=== PATIENT | female | born 1945 | race Caucasian/White ===

== ENCOUNTER 2019-04-13 13:33 | Emergency (ER) ==
[2019-04-13 13:33] VITALS: BMI 29.0
[2019-04-13] MEDS ORDERED: DECADRON 4 MG/ML SDV IM STA (13:37)
[2019-04-13] MEDS ORDERED: PEPCID PO STA (13:38)
[2019-04-13] MEDS ORDERED: NORCO 10-325 PO STA (13:38)
[2019-04-13] MEDS ORDERED: SODIUM CHLORIDE 1,000 ML IV STA (13:38)
[2019-04-13 13:40] VITALS: BP 103/91; TEMP 95
[2019-04-13] MEDS ORDERED: DECADRON 4 MG/ML SDV IVP STA (13:48)
--- NOTE | 2019-04-13 16:44 | ED.PDOC ---
General ED Provider: Dr. TABITHA HAMMER Chief Complaint: Allergic Reaction Stated Complaint: bee sting Time Seen by Physician: 13:33 Mode of Arrival: Wheelchair Information Source: Family Exam Limitations: No limitations Primary Care Provider: AURA CATHERINE Nursing and Triage Documentation Reviewed and Agree: Yes Does patient meet sepsis criteria?: No System Inflammatory Response Syndrome: Not Applicable Sepsis Protocol: For patient's 13 years and over: Temp is 96.8 and below OR 101 and greater Pulse >90 BPM Resp >20/minute Acutely Altered Mental Status Are patient's symptoms suggestive of a new infection, such as: -Pneumonia -Skin, Soft Tissue -Endocarditis -UTI -Bone, Joint Infection -Implantable Device -Acute Abdominal Infection -Wound Infection -Meningitis -Blood Stream Catheter Infection -Unknown Trauma/Injury Complaint Exam - Bite Injury Complaint/Exam Location of Bite: face Bite Occured: home face Symptoms Are: Still present Type of Bite: Reports: Insect Animal Immunized: Reports: N/A Initial Severity: Mild Current Severity: Mild Character: Reports: Puncture Aggravating: Reports: None Alleviating: Reports: None Associated Signs and Symptoms: Denies: Fever, Erythema, Drainage, Swelling, Lymphadenopathy, Numbness, Tingling, Limited ROM Related History: Reports: Unprovoked Bite Findings: Present: Erythema Review of Systems - Review Of Systems Constitutional: Reports: No symptoms Eyes: Reports: No symptoms Ears, Nose, Mouth, Throat: Reports: No symptoms Respiratory: Reports: No symptoms Cardiac: Reports: No symptoms GI: Reports: No symptoms : Reports: No symptoms Musculoskeletal: Reports: No symptoms Skin: Reports: No symptoms Neurological: Reports: No symptoms Endocrine: Reports: No symptoms Hematologic/Lymphatic: Reports: No symptoms All Other Systems: Reviewed and Negative Past Medical History - Past Medical History Previously Healthy: Yes Endocrine: Reports: None Cardiovascular: Reports: None Respiratory: Reports: None Hematological: Reports: None Gastrointestinal: Reports: None Genitourinary: Reports: None Neuro/Psych: Reports: None Musculoskeletal: Reports: None Cancer: Reports: None Last Menstrual Period: menopause - Surgical History General Surgical History: Reports: None - Family History Family History: Reports: None - Social History Smoking Status: Never smoker Hx Substance Use: No Alcohol Screening: Occasionally Physical Exam - Physical Exam Appearance: Well-appearing, No pain distress, Well-nourished Eyes: BALTAZAR, EOMI, Conjunctiva clear ENT: Ears normal, Nose normal, Oropharynx normal Respiratory: Airway patent, Breath sounds clear, Breath sounds equal, Respirations nonlabored Cardiovascular: RRR, Pulses normal, No rub, No murmur GI/: Soft, Nontender, No masses, Bowel sounds normal, No Organomegaly Musculoskeletal: Normal strength, ROM intact, No edema, No calf tenderness Skin: Warm Neurological: Sensation intact, Motor intact, Reflexes intact Psychiatric: Affect appropriate, Mood appropriate Critical Care Note - Critical Care Note Total Time (mins): 0 Course - Course Hematology/Chemistry: 04/13/19 13:45 04/13/19 13:45 Orders, Labs, Meds: Lab Review 04/13/19 04/13/19 04/13/19 13:45 13:45 13:45 WBC 6.36 RBC 4.75 Hgb 14.8 Hct 41.7 MCV 87.8 MCH 31.2 H MCHC 35.5 H RDW Coeff of Mai 12.1 Plt Count 505 H Immature Gran % (Auto) 0.3 Neut % (Auto) 52.0 Lymph % (Auto) 42.0 Bates % (Auto) 4.1 Eos % (Auto) 1.1 Baso % (Auto) 0.5 Immature Gran # (Auto) 0.0 Neut # (Auto) 3.3 Lymph # (Auto) 2.7 Bates # (Auto) 0.3 L Eos # (Auto) 0.1 Baso # (Auto) 0.0 Sodium 138.0 Potassium 3.80 Chloride 106.0 Carbon Dioxide 22.0 Anion Gap 13.80 BUN 14.0 Creatinine 1.00 Estimated GFR (MDRD) 55.00 BUN/Creatinine Ratio 14.00 Glucose 107.0 H Calcium 8.70 Total Bilirubin 0.90 AST 23.0 ALT 21.0 Alkaline Phosphatase 65.0 Total Creatine Kinase 84.0 POC Venous Troponin I 0.00 Troponin I < 0.012 Total Protein 7.10 Albumin 3.90 Globulin 3.20 Albumin/Globulin Ratio 1.21 Orders Category Date Time Status EKG-(ED ONLY) Stat CARDIO 04/13/19 13:39 Completed CBC W/ AUTO DIFF Stat LAB 04/13/19 13:45 Completed COMPREHENSIVE METABOLIC PANEL Stat LAB 04/13/19 13:45 Completed CREATINE KINASE Stat LAB 04/13/19 13:45 Completed TROPONIN I Stat LAB 04/13/19 13:45 Completed Dexamethasone 4 mg/ml Inj [Decadron 4 mg/ml Sdv] MEDS 04/13/19 13:48 Discontinued 4 mg IVP ONCE STA Famotidine [Pepcid] MEDS 04/13/19 13:38 Discontinued 20 mg PO ONCE STA Hydrocodone Bit/Acetaminophen [[place] 10-325] MEDS 04/13/19 13:38 Discontinued 1 tab PO ONCE STA Sodium Chloride 0.9% [Sodium Chloride] 1,000 ml MEDS 04/13/19 13:38 Discontinued IV BOLUS Medications Discontinued Medications Generic Name Dose Route Start Last Admin Trade Name Arslan PRKayley Reason Stop Dose Admin Hydrocodone Bitart/Acetaminophen 1 tab 04/13/19 13:38 [place] 10-325 PO 04/13/19 13:39 ONCE STA Dexamethasone Sodium Phosphate 4 mg 04/13/19 13:48 04/13/19 13:56 Decadron 4 Mg/Ml Sdv IVP 04/13/19 13:49 4 mg ONCE STA Administration Famotidine 20 mg 04/13/19 13:38 04/13/19 13:54 Pepcid PO 04/13/19 13:39 20 mg ONCE STA Administration Sodium Chloride 1,000 mls @ 1,000 mls/hr 04/13/19 13:38 04/13/19 13:56 Sodium Chloride IV 04/13/19 14:37 100 mls/hr BOLUS STA Administration Vital Signs: Temp Pulse Resp BP Pulse Ox 04/13/19 13:33 95 F L 82 16 103/91 H 94 L Departure - Departure Time of Disposition: 16:43 Disposition: HOME SELF-CARE Discharge Problem: Allergic state Bee sting Qualifiers: Encounter type: initial encounter Instructions: Insect Bite or Sting (ED) Condition: Good Pt referred to PMD for follow-up: Yes IPMP verified?: No Additional Instructions: Please call your Family Physician as soon as possible to schedule a follow-up appointment. Allergies/Adverse Reactions: Allergies No Known Allergies Allergy (Verified 04/13/19 13:42) Home Medications: Ambulatory Orders Diclofenac Sodium [Voltaren-Xr] 100 mg PO DAILY 04/13/19
== END 2019-04-13 16:53 | disposition home or self-care (01) ==
LOC: ED 13:33
DX: T63.441A Toxic effect of venom of bees, accidental (unintentional), initial encounter (principal)
CPT/HCPCS: 36415; 80053; 82550; 84484; 85025; 93005; 93010; 96361; 96374; 99283